=== PATIENT | female | born 1950 | race Asian ===

== ENCOUNTER 2018-08-08 15:25 | Inpatient (IN) | payer MEDICARE, OTHER ==
[~2018-08-08] VITALS: Ht 157.5 cm; Wt 72.7 kg
[2018-08-08 15:39] VITALS: BP 142/79; PULSE 86; TEMP 97.9
--- NOTE | 2018-08-08 17:58 | NUR ---
Patient has done well since self arrival from [place]. Hospitalist team rounded. IVF started & zosyn per orders. Addmission assessment completed. Scds ble. Will await for patient to void to send urine to lab. Patient has friend at bedside. Patient denies nausea or pain since arrival, WIll await for to round. Will report off to night nurse
[2018-08-08 19:11] LABS: CREATININE, serum 2.3 mg/dL (0.52-1.25)
[2018-08-08 19:25] LABS: FRACTIONAL EXCRETION OF NA+ 0.2 %
[2018-08-08 19:36] VITALS: BP 137/73; PULSE 75; TEMP 98.3
--- NOTE | 2018-08-08 21:13 | NUR ---
PT HAS BEEN WALKING IN HALLS WITH . NOW IN BED WITH HOB ELEVATED TO 15 DEGREE ANGLE. PT DENIES ANY PAIN OR DISCOMFORT, ALSO, DOES NOT HAVE ANY N/V. PT HAS NO NEEDS AT THIS TIME, CALL LIGHT WITHIN REACH, AND AT BEDSIDE.
[2018-08-08 23:49] VITALS: BP 148/67; PULSE 79; TEMP 98.5
--- NOTE | 2018-08-09 01:08 | NUR ---
PT IN BED WITH HOB AT 15 DEGREE ANGLE AND IN RECLINER AT PT'S SIDE. PT DENIES ANY PAIN OR DISCOMFORT AT THIS TIME, HAS NO NEEDS, AND CALL LIGHT WITHIN REACH.
[2018-08-09 04:26] VITALS: BP 146/67; PULSE 92; TEMP 98
[2018-08-09 06:04] LABS: BASO % 0.2 % (0.0-2.0); EOS # 0.1 (0.0-0.7); EOS % 0.4 % (0-4.0); GRAN # 11.5 (1.4-6.5); GRAN % 79.8 % (42.2-75.2); LYMPH # 1.5 (1.2-3.4); LYMPH % 10.2 % (20.0-51.0); MEAN CELL VOLUME 86 fl (80.0-100.0); MEAN CORPUSCULAR HEMOGLOBIN 28 pg (27.0-31.0); MEAN CORPUSCULAR HGB CONC 33 g/dl (33.0-37.0); MEAN PLATELET VOLUME 9.8 fl (7.4-10.4); MONO # 1.2 (0.1-0.6); MONO % 8.6 % (1.7-9.3); PLATELET COUNT 339 K/mm3 (130-400); RED BLOOD COUNT 3.88 M/mm3 (4.10-5.30); REDCELL DISTRIBUTION WIDTH-CV 14.6 % (11.5-14.5)
[2018-08-09 06:11] LABS: HEMATOCRIT 33.3 % (37.0-47.0)
[2018-08-09 06:23] LABS: ALBUMIN 3.3 gm/dL (3.5-5.0); BILIRUBIN,TOTAL 0.8 mg/dL (0.0-1.0); CALCIUM 8.8 mg/dL (8.4-10.2); CREATININE, serum 1.58 mg/dL (0.52-1.25); POTASSIUM 3.4 mmol/L (3.4-5.0); TOTAL PROTEIN 7.1 gm/dL (6.4-8.2)
[2018-08-09 08:59] VITALS: BP 135/64; PULSE 88; PULSE 986; TEMP 88; TEMP 98.6
[2018-08-09 12:17] VITALS: BP 140/70; PULSE 87; TEMP 98
[2018-08-09 15:14] VITALS: BP 176/80; PULSE 91; TEMP 98.3
[2018-08-09 19:24] VITALS: BP 146/61; PULSE 88; TEMP 98.7
--- NOTE | 2018-08-09 20:00 | NUR ---
Patient resting in bed, at bedside. Patient is alert and oriented, answers questions appropriately. IVF and antibiotics infusing per order. Patient denies pain or nausea at this time, call light within reach.
[2018-08-10] VITALS (14 sets, daily range): BP systolic 130–159; BP diastolic 55–94; PULSE 70–90; TEMP 98–99.2
--- NOTE | 2018-08-10 05:58 | NUR ---
Patient rested well overnight. IVF and antibiotics infusing per order. Patient made one request for PRN pain and nausea medication, but otherwise denied needs. Call light within reach, will begin preop preperations shortly.
[2018-08-10 06:02] LABS: MEAN CELL VOLUME 85 fl (80.0-100.0); MEAN CORPUSCULAR HEMOGLOBIN 28 pg (27.0-31.0); MEAN CORPUSCULAR HGB CONC 33 g/dl (33.0-37.0); MEAN PLATELET VOLUME 9.7 fl (7.4-10.4); PLATELET COUNT 303 K/mm3 (130-400); RED BLOOD COUNT 3.54 M/mm3 (4.10-5.30); REDCELL DISTRIBUTION WIDTH-CV 14.7 % (11.5-14.5)
[2018-08-10 06:13] LABS: BILIRUBIN,TOTAL 1.3 mg/dL (0.0-1.0); CALCIUM 7.9 mg/dL (8.4-10.2); CREATININE, serum 0.83 mg/dL (0.52-1.25); TOTAL PROTEIN 6.3 gm/dL (6.4-8.2)
[2018-08-10 06:23] LABS: POTASSIUM 2.9 mmol/L (3.4-5.0)
[2018-08-10 07:35] LABS: BAND 4 % (0-10); EOSINOPHIL 1 % (0-4); LYMPHOCYTE 18 % (20.0-51.0); NEUTROPHILS 65 % (42.0-75.2); PLATELET ESTIMATE NORMAL (NORMAL)
--- NOTE | 2018-08-10 07:45 | NUR ---
STEPHANY RN FROM OR PRESENT TO TRANSPORT PATIENT TO OR. PT VOIDED PRIOR TO BEING TAKEN TO OR. PT AWAKE, ALERT, AND ORIENTED X4. PT DENIES ANY NEEDS/QUESTIONS PRIOR TO TRANSFER. IV NS AND POTASSIUM SENT WITH PATIENT ALONG WITH SCHEDULED DOSE OF ZOSYN. PREOP IVF WITH STRAIGHT TUBING SENT WITH PATIENT WELL. CONSENT ON CHART AND GIVEN TO STEPHANY. PREOP CHECKLIST AND PREOP MEDICATIONS COMPLETED BY TY POMPA, SHOP AND ALTERATION TAILOR NURSE.
--- NOTE | 2018-08-10 10:04 | NUR ---
REPORT RECEIVED FROM STEPHANY POMPA FROM PACU. PT HAS 4 SITES, 3 SITES SECURED WITH INDERMIL GLUE, 4TH SITE HAS DRAIN PRESENT. PT GIVEN 25MCG FENTANYL FOR LEFT SHOULDER PAIN AND 4MG ZOFRAN FOR POST OP NAUSEA. PT'S VS 137/83, PULSE 77, RESP 12, O2 SAT 95% ON 2LNC
--- NOTE | 2018-08-10 10:10 | NUR ---
PT ARRIVED VIA BED TO SURGICAL ROOM 349. PT AWAKE AND ORIENTED. PT STATES SHE IS HAVING 8/10 ABDOMINAL DISCOMFORT AT THIS TIME. PT HAS 3 LAP SITES SECURED WITH SKIN GLUE TO MID UPPER ABDOMEN, UMBILICAL AREA, AND MID RIGHT ABDOMEN. SITES CLEAN, DRY, AND INTACT. PT HAS DRAIN SITE TO LATERAL RIGHT ASPECT OF MID ABDOMEN. DRAIN TO BULB SUCTION WITH SMALL AMT OF SEROUS, PINKISH/RED COLORED DRAINAGE. PT'S LUNGS CLEAR THROUGHOUT, NO COUGH NOTED. PT ON 2L NC AT THIS TIME. VS OBTAINED. POST OP CHECKS INIITATED.
[2018-08-11 00:02] VITALS: BP 124/64; PULSE 78; TEMP 98.2
[2018-08-11 04:47] VITALS: BP 149/78; PULSE 76; TEMP 98.2
--- NOTE | 2018-08-11 05:51 | NUR ---
Patient has rested well overnight. Patient is alert and oriented, answers questions appropriately. 3 lap sites on abdomen are WA, no drainage noted. JONNATHAN site is CDI, moderate bloody output from JONNATHAN drain overnight. Pain has been well controlled with IV morphine as she has not had substantial solid intake overnight. VS have remained WNL. IVF infusing per order. Patient denies further needs at this time, call light within reach.
[2018-08-11 07:13] LABS: MEAN CELL VOLUME 86 fl (80.0-100.0); MEAN CORPUSCULAR HGB CONC 33 g/dl (33.0-37.0); MEAN PLATELET VOLUME 10.3 fl (7.4-10.4); PLATELET COUNT 318 K/mm3 (130-400); RED BLOOD COUNT 3.36 M/mm3 (4.10-5.30); REDCELL DISTRIBUTION WIDTH-CV 15.4 % (11.5-14.5)
[2018-08-11 07:19] LABS: HEMOGLOBIN 9.7 g/dl (12.5-16.0); MEAN CORPUSCULAR HEMOGLOBIN 29 pg (27.0-31.0)
[2018-08-11 07:24] LABS: ALBUMIN 2.9 gm/dL (3.5-5.0); CALCIUM 8.1 mg/dL (8.4-10.2); CREATININE, serum 0.71 mg/dL (0.52-1.25); POTASSIUM 4.1 mmol/L (3.4-5.0); TOTAL PROTEIN 6.3 gm/dL (6.4-8.2)
[2018-08-11 07:46] VITALS: BP 153/74; PULSE 70; TEMP 98.6
--- NOTE | 2018-08-11 09:00 | NUR ---
JONNATHAN drain to RLQ removed per physicians order with no complications.
--- NOTE | 2018-08-11 10:33 | NUR ---
Discharge instructions reviewed with patient and spouse, verbalized understanding. Discharged via wheelchair to auto/home at 1010.
--- NOTE | 2018-08-11 11:16 | NUR ---
Initial visit; Patient thanked Asset Protection Agent for looking in on her and offering God's blessings and keeping her in Asset Protection Agent's prayers.
== END 2018-08-11 10:10 | disposition home or self-care (01) | DRG 418 ==
LOC: SURG 15:25
PROVIDERS: Physician Assistant; ADMIT Surgery
PROC: BF121ZZ Fluoroscopy of Gallbladder using Low Osmolar Contrast (ICD-10-PCS; 2018-08-10)
PROC: 0FT44ZZ Resection of Gallbladder, Percutaneous Endoscopic Approach (ICD-10-PCS; principal; 2018-08-10 08:00)
DX: K81.0 Acute cholecystitis (principal); N17.9 Acute kidney failure, unspecified; K82.A1 Gangrene of gallbladder in cholecystitis; E87.6 Hypokalemia
CPT/HCPCS: 99222; 99232-AI; J1100; J2270; J2370; J2405; J2543; J2704; J2710; J3010; J3480; J7030; J7120; Q9967